=== PATIENT | female | born 1965 | race Caucasian/White ===

== ENCOUNTER 2016-05-28 12:54 | Emergency (ER) | payer BC ==
[2016-05-28] MEDS ORDERED: Sodium Chloride 0.9% 1,000 ML IV ONE (13:33)
--- NOTE | 2016-05-28 13:33 | EDM.PDOC ---
ED HPI GI/ABDOMINAL - General Chief Complaint: Gastrointestinal Problem Stated Complaint: ONCOLOGY PT Time Seen by Provider: 05/28/16 13:26 Source of Information: Reports: Patient History Limitations: Reports: No limitations - History of Present Illness INITIAL COMMENTS - FREE TEXT/NARRATIVE: History of present illness: [50-year-old female presenting with complaints of acute abdominal pain. Patient is indicating she has the presumptive diagnosis of constipation secondary to increase in opioid use for metastatic cancer, as well as the lack of any bowel activity for 12 days. Patient indicates her routine parents one to 2 stools today. Patient acknowledges that she has not been ingesting her routine amount of food and that she has dropped from her 5-6 glasses (8 ounce glasses) of water today to A. questionable amount since she cannot seem to remember.] Review of systems: As per history of present illness and below otherwise all systems reviewed and negative. Past medical history: As per history of present illness and as reviewed below otherwise noncontributory. Surgical history: As per history of present illness and as reviewed below otherwise noncontributory. Social history: No reported history of drug or alcohol abuse. Family history: As per history of present illness and as reviewed below otherwise noncontributory. Physical exam: HEENT: Atraumatic, normocephalic, pupils reactive, negative for conjunctival pallor or scleral icterus, mucous membranes moist, throat clear, neck supple, nontender, trachea midline. Lungs: Clear to auscultation, breath sounds equal bilaterally, chest nontender. Heart: S1S2, regular, negative for clicks, rubs, or JVD. Abdomen: Soft, nondistended, nontender. Negative for masses or hepatosplenomegaly. Negative for costovertebral tenderness. Pelvis: Stable nontender. Genitourinary: Deferred. Rectal: Deferred. Extremities: Atraumatic, negative for cords or calf pain. Neurovascular unremarkable. Neuro: Awake, alert, oriented. Cranial nerves II through XII unremarkable. Cerebellum unremarkable. Motor and sensory unremarkable throughout. Exam nonfocal. Diagnostics: [BC, CMP, and] Therapeutics: [IV fluid] Impression: [Abdominal pressure] Plan: [Dulcolax suppository, Go-lytley for home use] Definitive disposition and diagnosis as appropriate pending reevaluation and review of above. - Related Data Allergies/ADRs: Allergies Allergy/AdvReac Type Severity Reaction Status Date / Time naproxen Allergy Hives Verified 05/28/16 13:27 Home Meds: Home Meds KCl/Na Sulf,Bicarb,Cl/PEG 3351 [GoLytely] 4,000 ml PO ONETIME #1 bottle [Rx] ED ROS GENERAL - Review of Systems Review Of Systems: See Below (See history present illness) ED EXAM, GI/ABD - Physical Exam Exam: See Below (See history of present illness) Course - Vital Signs Last Recorded V/S: Last Vital Signs Temp 37.4 C 05/28/16 13:27 Pulse 114 H 05/28/16 13:27 Resp 18 05/28/16 13:27 BP 124/91 H 05/28/16 13:27 Pulse Ox 97 05/28/16 13:27 - Orders/Labs/Meds Labs: Laboratory Tests 05/28/16 05/28/16 Range/Units 13:44 13:44 WBC 11.63 H (4.0-11.0) K/uL RBC 4.87 (4.30-5.90) M/uL Hgb 15.5 (12.0-16.0) g/dL Hct 44.2 (36.0-46.0) % MCV 90.8 (80.0-98.0) fL MCH 31.8 (27.0-32.0) pg MCHC 35.1 (31.0-37.0) g/dL RDW Std Deviation 40.7 (28.0-62.0) fl RDW Coeff of Gini 12 (11.0-15.0) % Plt Count 257 (150-400) K/uL MPV 10.40 (7.40-12.00) fL Neut % (Auto) 82.3 H (48.0-80.0) % Lymph % (Auto) 12.0 L (16.0-40.0) % [place] % (Auto) 4.0 (0.0-15.0) % Eos % (Auto) 1.5 (0.0-7.0) % Baso % (Auto) 0.2 (0.0-1.5) % Neut # (Auto) 9.6 H (1.4-5.7) K/uL Lymph # (Auto) 1.4 (0.6-2.4) K/uL [place] # (Auto) 0.5 (0.0-0.8) K/uL Eos # (Auto) 0.2 (0.0-0.7) K/uL Baso # (Auto) 0.0 (0.0-0.1) K/uL Nucleated RBC % 0.0 /100WBC Nucleated RBCs # 0 K/uL Sodium 135 L (136-146) mmol/L Potassium 3.4 L (3.5-5.1) mmol/L Chloride 95 L (98-110) mmol/L Carbon Dioxide 25 (21-31) mmol/L BUN 19 (6.0-23.0) mg/dL Creatinine 0.9 (0.6-1.5) mg/dL Est Cr Clr Drug Dosing 52.52 mL/min Estimated GFR (MDRD) > 60.0 ml/min Glucose 174 H (60-110) mg/dL Calcium 9.5 (8.8-10.8) mg/dL Total Bilirubin 0.7 (0.1-1.5) mg/dL AST 22 (5-40) IU/L ALT 18 (8-54) IU/L Alkaline Phosphatase 94 (40-150) Total Protein 7.3 (6.0-8.0) g/dL Albumin 3.9 (3.5-5.0) g/dL Globulin 3.4 (2.0-3.5) g/dL Albumin/Globulin Ratio 1.2 L (1.3-2.8) Meds: Medications Discontinued Medications Generic Name Dose Route Start Last Admin Trade Name Bolivarq PRN Reason Stop Dose Admin Bisacodyl 10 mg 05/28/16 16:39 Dulcolax RECTAL 05/28/16 16:40 ONETIME ONE Sodium Chloride 1,000 mls @ 999 mls/hr 05/28/16 13:33 05/28/16 13:59 Normal Saline IV 05/28/16 14:33 999 mls/hr STAT ONE Administration Iopamidol 100 ml 05/28/16 15:49 05/28/16 16:00 Isovue Multipack-370 (76%) IVPUSH 05/28/16 15:50 100 ml ONETIME STA Administration Departure - Departure Time of Disposition: 17:11 Disposition: Home, Self-Care 01 Condition: good Clinical Impression: Abdominal pain Prescriptions: KCl/Na Sulf,Bicarb,Cl/PEG 3351 [GoLytely] 4,000 ml PO ONETIME #1 bottle Instructions: Abdominal Pain, Adult, [id number], Pain Medicine Instructions, [id number], Constipation, Adult, [id number] Forms: ED Department Discharge Additional Instructions: The following information is given to patients seen in the emergency department who are being discharged to home. This information is to outline your options for follow-up care. We provide all patients seen in our emergency department with a follow-up referral. The need for follow-up, as well as the timing and circumstances, are variable depending upon the specifics of your emergency department visit. If you don't have a primary care physician on staff, we will provide you with a referral. We always advise you to contact your personal physician following an emergency department visit to inform them of the circumstance of the visit and for follow-up with them and/or the need for any referrals to a consulting specialist. The emergency department will also refer you to a specialist when appropriate. This referral assures that you have the opportunity for follow-up care with a specialist. All of these measure are taken in an effort to provide you with optimal care, which includes your follow-up. Under all circumstances we always encourage you to contact your private physician who remains a resource for coordinating your care. When calling for follow-up care, please make the office aware that this follow-up is from your recent emergency room visit. If for any reason you are refused follow-up, please contact the [facility] Emergency Department at and asked to speak to the emergency department charge nurse. Take medication as directed Followup with PCP as discussed Return to ED as needed as discussed
[2016-05-28 14:12] LABS: CHLORIDE,CL 95 mmol/L (98-110); SODIUM,NA 135 mmol/L (136-146)
[2016-05-28] MEDS ORDERED: Iopamidol 755 MG/ML 500 ML Multipack Bottle IVPUSH STA (15:49)
--- NOTE | 2016-05-28 16:35 | CT ---
CT of the abdomen and pelvis with contrast. HISTORY: Pain TECHNIQUE: Axial CT images were obtained of the abdomen and pelvis following administration of 100 m L of Isovue-370 in the right hand without complication. Coronal and sagittal reconstructions obtaine d. FINDINGS: There is mild atelectasis within the lung bases. There is focal fatty infiltration near the falciform ligament with an adjacent calcified granuloma. The spleen, adrenal glands, and pancreas appear normal. Cholecystectomy clips are noted. There is no bulky retroperitoneal lymphadenopathy or abdominal ascites. The kidneys enhance and function symmetrically without evidence of obstructive uropathy. There is a 1.8 cm cystic area within the lower pole of the right kidney with a mildly thickened enhancing sept ation. There is mild dense. Renal stranding also noted on the right. The large and small bowel are normal in caliber without evidence of obstruction. No pericolonic infl ammation or stranding. The appendix appears normal. The urinary bladder is normal. No bulky retroper itoneal lymphadenopathy or abdominal ascites. Uterus is mildly prominent in size, otherwise unremar kable. Sclerotic changes are noted within the T12, L2, and L5 vertebral bodies. There is a mild compression deformity of the T10 vertebral body with a heterogeneous underlying lytic process. Lytic changes ar e also noted within the L5 vertebral body. There are a few sclerotic and lucent areas within the pel vis also noted. There is also likely a pathologic fracture along the posterior aspect of the right a cetabulum and right inferior pubic ramus. IMPRESSION: 1. Mixed lytic and sclerotic changes noted within the thoracic lumbar spine, given the appearance th is likely represents metastatic disease. The sclerotic component may suggest breast cancer as the or igin. 2. Mild acute appearing compression deformity at T10, likely pathologic. 3. Bosniak criteria 31.8 cm right renal cyst. 4. Probable pathologic fracture of the right posterior acetabulum and inferior pubic ramus.
[2016-05-28] MEDS ORDERED: Bisacodyl 10 MG Supp RECTAL ONE (16:39)
[2016-05-28 18:25] VITALS: BP 137/85
== END 2016-05-28 17:27 | disposition home or self-care (01) ==
LOC: MW.ED 12:54
DX: R10.9 Unspecified abdominal pain (principal); Z88.8 Allergy status to other drugs, medicaments and biological substances
CPT/HCPCS: 36415; 74177; 80053; 85025; 96360; 99284; A9270; J7040; Q9967; 99282